=== PATIENT | female | born 2000 | race Caucasian/White ===

== ENCOUNTER → 2018-02-03 | Outpatient (CLI) | payer BC ==
--- NOTE | 2018-02-03 15:21 | RADIOLOGY IMAGING REPORT ---
FACILITY: [facility] PATIENT NAME: Mary North : 2000 MR: [id number] V: [id number] EXAM DATE: ORDERING PHYSICIAN: MARY TOLEDO TECHNOLOGIST: Location: [facility] Patient: Mary North : 2000 Visit/Account:[id number] Date of Sevice: 02/03/2018 FOOT 3 VIEW RIGHT COMPARISON: None. HISTORY: Swelling/pain in right foot, fifth digit. Inversion injury right fifth metatarsal pain. TECHNIQUE: 3 views of the right foot were obtained without weightbearing technique FINDINGS: BONES: There is a subtle transverse lucency across the base of the fifth metatarsal seen on lateral and oblique views consistent with acute nondisplaced fracture. No other fractures are seen. No sign ificant arthropathy or bone lesion. Alignment is within normal limits for non-weightbearing techniqu e. Metatarsal bases are appropriately aligned. Calcaneal height is preserved SOFT TISSUES: Negative. No visible soft tissue swelling. EFFUSION: None suggested. OTHER: Negative. IMPRESSION: Nondisplaced fracture of the right fifth metatarsal base. Report Dictated By: Claude Peres at 02/03/2018 3:16 PM Report E-Signed By: Claude Peres at 02/03/2018 3:17 PM WSN:[email or web address]
== END ==
LOC: RAD 14:34
PROVIDERS: ATTEND Emergency Medicine Sports Medicine
DX: S92.354A Nondisplaced fracture of fifth metatarsal bone, right foot, initial encounter for closed fracture (principal)

== ENCOUNTER → 2018-02-23 | Outpatient (CLI) | payer BC ==
--- NOTE | 2018-02-23 15:13 | RADIOLOGY IMAGING REPORT ---
FACILITY: [facility] PATIENT NAME: Mary North : 2000 MR: [id number] V: [id number] EXAM DATE: ORDERING PHYSICIAN: MARY TOLEDO TECHNOLOGIST: Location: [facility] Patient: Mary North : 2000 Visit/Account:[id number] Date of Sevice: 02/23/2018 Exam type: TOE RIGHT FOOT FIFTH DIGIT History: Right fifth metatarsal fracture five weeks ago Comparison: February 03, 2018. Findings: When compared the prior study again noted is a transverse fracture through the base of the right fift h metatarsal. There is now approximate 1 mm diastases the fracture fragments IMPRESSION: 1. There is now a 1 mm diastases the fracture fragments involving the base of the right fifth metata rsal Report Dictated By: Felicity Yanes MD at 02/23/2018 3:06 PM Report E-Signed By: Felicity Yanes MD at 02/23/2018 3:08 PM WSN:[email or web address]
== END ==
LOC: RAD 13:55
PROVIDERS: ATTEND Emergency Medicine Sports Medicine
DX: S92.354A Nondisplaced fracture of fifth metatarsal bone, right foot, initial encounter for closed fracture (principal)